=== PATIENT | male | born 1980 | race Caucasian/White ===

== ENCOUNTER → 2024-07-11 | Outpatient (CLI) | payer OTHER ==
[~2024-07-11] MED LIST: CYMBALTA 20MG20 MG PO; IMITREX 25MG TA25 MG PO; Iohexol 300 - 100 ML VIAL IV ONE; MOBIC15 MG PO; NORCO 325 MG-51 TAB PO; NS 100 ML IV SCH; PRILOSEC10 MG PO; PROZAC60 MG PO; PYRIDIUM 100MG100 MG PO; RISPERDAL 0.5M0.5 MG PO; VITAMIN D362.5 MC1 PO
== END ==
LOC: COL.RAD 12:19
DX: C79.9 Secondary malignant neoplasm of unspecified site (principal); K22.89 Other specified disease of esophagus; R59.1 Generalized enlarged lymph nodes; N20.0 Calculus of kidney; K76.89 Other specified diseases of liver
CPT/HCPCS: Q9967

== ENCOUNTER → 2024-07-23 | Outpatient (CLI) | payer OTHER | LOC: COL.RAD 07:54 | DX: Z01.89 Encounter for other specified special examinations (principal); C79.9 Secondary malignant neoplasm of unspecified site; N20.0 Calculus of kidney; R59.1 Generalized enlarged lymph nodes | CPT/HCPCS: Q9967 ==